=== PATIENT | female | born 1995 | race Caucasian/White ===

== ENCOUNTER 2017-01-07 22:09 | Emergency (ER) | payer MEDICAID, OTHER ==
[2017-01-07 22:10] VITALS: BMI 26.1
[2017-01-07 22:21] VITALS: TEMP 97.8
--- NOTE | 2017-01-07 22:54 | ED PDOC ---
HPI: Abdomen Time Seen by Provider: 01/07/17 22:27 Chief Complaint (Nursing): Female Genitourinary Chief Complaint (Provider): ; pelvic pain History Per: Patient History/Exam Limitations: no limitations Onset/Duration Of Symptoms: Days (1) Current Symptoms Are (Timing): Still Present Location Of Pain/Discomfort: Suprapubic Quality Of Discomfort: Sharp, "Pain" Last Bowel Movement: Today Additional History Per: Patient Additional Complaint(s): 21 y/o female history of PCOS, approx 5 weeks gestation, presents with lower pelvic cramping x 1 day. Denies fever, nausea/vomiting, changes in bowel movements, dysuria, hematuria, vaginal bleeding/discharge. Patient states she had recent beta level and was told it was "low", in the 900's. Last Menstral Period: 12/02/16 : 1 Para: 0 Miscarriage: 0 Past Medical History Reviewed: Historical Data, Nursing Documentation, Vital Signs Vital Signs: Last Vital Signs Temp 97.8 F 01/07/17 22:18 Pulse 84 01/07/17 22:18 Resp 18 01/07/17 22:18 BP 123/77 01/07/17 22:18 Pulse Ox 100 01/07/17 23:54 - Medical History PMH: Anemia, Asthma, Hypothyroidism - Family History Family History: States: Unknown Family Hx - Immunization History Hx Tetanus Toxoid Vaccination: Yes Hx Influenza Vaccination: Yes Hx Pneumococcal Vaccination: Yes - Home Medications Home Medications: Ambulatory Orders Medication Instructions Recorded Amoxicillin [Amoxil 500 mg Cap] 500 mg PO Q8 #30 cap 12/24/14 Ibuprofen 600 mg PO Q8 #30 tab 12/24/14 Norgestimate-Ethinyl Estradiol 1 tab PO DAILY 11/22/15 [Sprintec 28 Day Tablet] Pnv#26/Iron Poly/FA/Dha 1 tab PO DAILY 11/22/15 [Vitafol-One Capsule] Cyclobenzaprine [Cyclobenzaprine 10 mg PO TID #20 tab 04/15/16 HCl] Ibuprofen [Motrin] 600 mg PO Q6 #20 tab 04/15/16 - Allergies Allergies/Adverse Reactions: Allergies Allergy/AdvReac Type Severity Reaction Status Date / Time No Known Allergies Allergy Verified 04/15/16 14:09 Review of Systems ROS Statement: Except As Marked, All Systems Reviewed And Found Negative Genitourinary Female: Positive for: Pelvic Pain Physical Exam - Reviewed Nursing Documentation Reviewed: Yes Vital Signs Reviewed: Yes - Physical Exam Appears: Positive for: Well, Non-toxic, No Acute Distress Head Exam: Positive for: ATRAUMATIC, NORMAL INSPECTION, NORMOCEPHALIC Skin: Positive for: Normal Color Cardiovascular/Chest: Positive for: Regular Rate, Rhythm Respiratory: Positive for: Normal Breath Sounds Gastrointestinal/Abdominal: Positive for: Bowel Sounds, Soft, Tenderness ( diffuse lower discomfort, worse suprapubic) Back: Positive for: Normal Inspection Extremity: Positive for: Normal ROM Neurologic/Psych: Positive for: Alert, Oriented - Laboratory Results Result Diagrams: 01/07/17 22:58 01/07/17 22:58 - ECG O2 Sat by Pulse Oximetry: 100 - Progress ED Course And Treament: labs, urine, OB TV u/s EXAM: US , Transvaginal CLINICAL HISTORY: 21 years old, female; Pain; Other: Pelvic pain; Gestational age or lmp: 12/04/16; ; Additional info: , pelvic pain TECHNIQUE: Real-time transvaginal obstetrical ultrasound of the maternal pelvis and a first trimester with image documentation. Transvaginal imaging was used for better evaluation of the fetus and adnexa. COMPARISON: No relevant prior studies available. FINDINGS: Gestation: Gestational sac. Yolk sac. No pole. Mean sac diameter of 0.51 cm, out of range. Uterus/cervix: Retroverted uterus. 1.1 x 0.8 x 1.0 cm uterine mass. No subchorionic hemorrhage. No cervical dilatation or effacement. Ovaries: RIGHT ovary: Normal. LEFT ovary: Probable corpus luteal cyst. No adnexal masses. Free fluid: No significant free fluid. IMPRESSION: 1. Intrauterine , of uncertain viability. Recommend followup. 2. Probable fibroid. 3. Incidental/non-acute findings are described above. Patient educated on findings, discharged with instructions to follow up Vending Machine [employer]r in 2-3 days. Return to ED for worsening/concerning symptoms. Disposition - Clinical Impression Clinical Impression: Uterine fibroid, Abdominal pain during - Disposition Disposition Time: 00:36 Condition: STABLE Additional Instructions: Follow up with Vending Machine Rep[employer]r in 2-3 days. Return to ED for worsening/concerning symptoms. Instructions: Uterine Fibroids (ED), Abdominal Pain in (ED)
[2017-01-07 23:02] LABS: BASO % 0.3 % (0.0-2.0); EOS # 0.8 K/uL (0.0-0.7); EOS % 6.9 % (0.0-4.0); HEMATOCRIT 39.1 % (34.0-47.0); LYMPH % 26.6 % (20.0-40.0); MEAN CELL VOLUME 85.6 fl (81.0-99.0); MEAN CORPUSCULAR HEMOGLOBIN 27.8 pg (27.0-31.0); MEAN CORPUSCULAR HGB CONC 32.5 g/dL (33.0-37.0); MEAN PLATELET VOLUME 8.5 fl (7.2-11.7); MONO # 0.8 K/uL (0.0-0.8); MONO % 7.4 % (0.0-10.0); NEUT # 6.6 K/uL (1.8-7.0); NEUT % 58.8 % (50.0-75.0); RED CELL DISTRIBUTION WIDTH 13.1 % (11.5-14.5); WHITE BLOOD COUNT 11.2 K/uL (4.8-10.8)
[2017-01-07 23:09] LABS: RBC URINE 5 /hpf (0-3); URINE BACTERIA RARE (<OCC); URINE BILIRUBIN NEGATIVE (NEGATIVE); URINE BLOOD NEGATIVE (NEGATIVE); URINE COLOR YELLOW (YELLOW); URINE GLUCOSE (UA) NEG (Normal); URINE KETONE NEGATIVE (NEGATIVE); URINE LEUKOCYTE ESTERASE NEG Leu/uL (Negative); URINE PROTEIN 30 mg/dL (NEGATIVE); URINE UROBILINOGEN 0.2-1.0 mg/dL (0.2-1.0); WBC URINE 1 /hpf (0-5)
[2017-01-07 23:11] LABS: ALB/GLOB RATIO 1.2 (1.0-2.1); ALKALINE PHOSPHATASE 48 U/L (38-126); ALT/SGPT 50 U/L (9-52); AST/SGOT 34 U/L (14-36); BILIRUBIN,TOTAL 0.3 mg/dl (0.2-1.3); BLOOD UREA NITROGEN 9 mg/dl (7-17); CALCIUM 8.9 mg/dL (8.4-10.2); CARBON DIOXIDE 24 mmol/L (22-30); CHLORIDE 104 mmol/L (98-107); GFR AFRICAN-AMERICAN > 60; GLUCOSE,RANDOM 92 mg/dL (65-105); POTASSIUM 3.5 MMOL/L (3.6-5.0); SODIUM 140 mmol/l (132-148); TOTAL PROTEIN 7.1 G/DL (6.3-8.2)
--- NOTE | 2017-01-07 23:41 | US ---
EXAM: US , Transvaginal CLINICAL HISTORY: 21 years old, female; Pain; Other: Pelvic pain; Gestational age or lmp: 12/04/16; ; Additional info: , pelvic pain TECHNIQUE: Real-time transvaginal obstetrical ultrasound of the maternal pelvis and a first trimester with image documentation. Transvaginal imaging was used for better evaluation of the fetus and adnexa. COMPARISON: No relevant prior studies available. FINDINGS: Gestation: Gestational sac. Yolk sac. No pole. Mean sac diameter of 0.51 cm, out of range. Uterus/cervix: Retroverted uterus. 1.1 x 0.8 x 1.0 cm uterine mass. No subchorionic hemorrhage. No cervical dilatation or effacement. Ovaries: RIGHT ovary: Normal. LEFT ovary: Probable corpus luteal cyst. No adnexal masses. Free fluid: No significant free fluid. IMPRESSION: 1. Intrauterine , of uncertain viability. Recommend followup. 2. Probable fibroid. 3. Incidental/non-acute findings are described above.
[2017-01-08 00:44] VITALS: BP 122/65; PULSE 81; RESP 16; O2SAT 98
== END 2017-01-08 00:38 | disposition home or self-care (01) ==
LOC: H.ER 22:09
DX: O26.891 Other specified pregnancy related conditions, first trimester (principal); R10.2 Pelvic and perineal pain; J45.909 Unspecified asthma, uncomplicated; D25.9 Leiomyoma of uterus, unspecified

== ENCOUNTER 2017-03-14 19:27 | Emergency (ER) | payer OTHER, MEDICAID ==
[2017-03-14 19:27] VITALS: BMI 26.1
[2017-03-14 19:45] VITALS: BP 116/59; PULSE 86; RESP 16; TEMP 97.8; O2SAT 99
[2017-03-14] MEDS ORDERED: Albuterol 0.083% Inhal Sol (2.5 mg/3 mL) UD INH ONE (20:13)
[2017-03-14] MEDS ORDERED: methylPREDNISolone 125 MG in Sodium Chloride 0.9% 50 ML IVPB ONE (20:14)
--- NOTE | 2017-03-14 20:17 | ED PDOC ---
HPI: SOB/CHF/COPD Time Seen by Provider: 03/14/17 19:56 Chief Complaint (Nursing): Shortness Of Breath Chief Complaint (Provider): SOB History Per: Patient History/Exam Limitations: no limitations Onset/Duration Of Symptoms: Days (4) Current Symptoms Are (Timing): Still Present Initiating Event: Upper Respiratory Illness Current Respiratory Medications: None Associated Symptoms: Chills, Productive Cough Additional Complaint(s): 21 y/o F with PMhx of hypothyroid and pneumonia 3 months ago, at 14+ weeks IUP presents c/o SOB, productive cough and occasionally episode of chill for the past 4 days. Patient states 4 days ago she had runny nose and allergy like symptoms that resolved. She is concerns because episode of recent Pneumonia. She thinks she had fever yesterday because she felt very hot and chills but didnt check her temp. Denies CP, palpitations or dizziness. Denies any other PMHx. Denies vaginal bleeding, dysuria, LOF or vaginal discharge. Past Medical History Reviewed: Nursing Documentation, Vital Signs Vital Signs: Last Vital Signs Temp 97.8 F 03/14/17 19:40 Pulse 86 03/14/17 19:40 Resp 16 03/14/17 20:26 BP 116/59 L 03/14/17 19:40 Pulse Ox 99 03/14/17 20:49 - Medical History PMH: Anemia, Asthma, Hypothyroidism - Family History Family History: States: Unknown Family Hx - Social History Current smoker - smoking cessation education provided: No Alcohol: None Drugs: Denies - Immunization History Hx Tetanus Toxoid Vaccination: Yes Hx Influenza Vaccination: Yes Hx Pneumococcal Vaccination: Yes - Home Medications Home Medications: Ambulatory Orders Medication Instructions Recorded Amoxicillin [Amoxil 500 mg Cap] 500 mg PO Q8 #30 cap 12/24/14 Ibuprofen 600 mg PO Q8 #30 tab 12/24/14 Norgestimate-Ethinyl Estradiol 1 tab PO DAILY 11/22/15 [Sprintec 28 Day Tablet] Pnv#26/Iron Poly/FA/Dha 1 tab PO DAILY 11/22/15 [Vitafol-One Capsule] Cyclobenzaprine [Cyclobenzaprine 10 mg PO TID #20 tab 04/15/16 HCl] Ibuprofen [Motrin] 600 mg PO Q6 #20 tab 04/15/16 Albuterol HFA [Ventolin HFA 90 1 - 2 puff IH Q6 PRN #1 inhaler 03/14/17 mcg/actuation (8 g)] Azithromycin [Zithromax] 250 mg PO QAM #1 pkg 03/14/17 predniSONE [predniSONE Tab] 60 mg PO QAM #12 tab 03/14/17 - Allergies Allergies/Adverse Reactions: Allergies Allergy/AdvReac Type Severity Reaction Status Date / Time Sulfa (Sulfonamide Allergy ITCHING Verified 03/14/17 19:45 Antibiotics) Review of Systems ROS Statement: Except As Marked, All Systems Reviewed And Found Negative Constitutional: Positive for: Chills Respiratory: Positive for: Cough, Shortness of Breath, Sputum, Wheezing Physical Exam - Reviewed Nursing Documentation Reviewed: Yes Vital Signs Reviewed: Yes - Physical Exam Appears: Positive for: Non-toxic Head Exam: Positive for: ATRAUMATIC Skin: Positive for: Normal Color, Warm Eye Exam: Positive for: EOMI, PERRL Cardiovascular/Chest: Positive for: Regular Rate, Rhythm. Negative for: Gallop , Murmur Respiratory: Positive for: Wheezing. Negative for: Decreased Breath Sounds, Crackles, Respiratory Distress Gastrointestinal/Abdominal: Positive for: Normal Exam, Soft. Negative for: Tenderness Extremity: Positive for: Normal ROM. Negative for: Tenderness, Pedal Edema Neurologic/Psych: Positive for: Alert, Oriented. Negative for: Motor/Sensory Deficits - Laboratory Results Result Diagrams: 03/14/17 20:44 03/14/17 20:44 - ECG O2 Sat by Pulse Oximetry: 99 - Progress ED Course And Treament: CXR no infiltrates Slight elevation of WBC could be related to Patient improved clinically Will be DC home with Zithromax, Albuterol HFA and Prednisone PO F/U with PMD and OB Medical Decision Making Medical Decision Makin21 y/o F with PMHx of hypothyroid and recent pneumonia 3 months ago presents C/ O SOB Rule out Pneumonia vs bronchitis VS WNL CXR CBC,CMP,Lactate ALbuterol neb 5mg x1 Solumedrol 125mls x1 Disposition - Clinical Impression Clinical Impression: Bronchitis - Disposition Disposition Time: 21:15 Condition: STABLE Prescriptions: Albuterol HFA [Ventolin HFA 90 mcg/actuation (8 g)] 1 - 2 puff IH Q6 PRN #1 inhaler PRN Reason: Shortness Of Breath Azithromycin [Zithromax] 250 mg PO QAM #1 pkg predniSONE [predniSONE Tab] 60 mg PO QAM #12 tab Instructions: Acute Bronchitis (ED) Forms: [facility] (Indonesian)
[2017-03-14] MEDS ORDERED: Albuterol 0.083% Inhal Sol (2.5 mg/3 mL) UD ONE ×2 (20:29→20:34)
[2017-03-14 20:53] LABS: BASO % 0.2 % (0.0-2.0); EOS # 0.7 K/uL (0.0-0.7); EOS % 4.6 % (0.0-4.0); HEMOGLOBIN 11.7 g/dL (12.0-16.0); LYMPH # 3.1 K/uL (1.0-4.3); LYMPH % 21.8 % (20.0-40.0); MEAN CELL VOLUME 84.3 fl (81.0-99.0); MEAN CORPUSCULAR HEMOGLOBIN 28.8 pg (27.0-31.0); MEAN CORPUSCULAR HGB CONC 34.2 g/dL (33.0-37.0); MEAN PLATELET VOLUME 8.2 fl (7.2-11.7); MONO % 6.7 % (0.0-10.0); NEUT # 9.6 K/uL (1.8-7.0); NEUT % 66.7 % (50.0-75.0); RBC 4.07 Mil/uL (3.80-5.20); RED CELL DISTRIBUTION WIDTH 12.9 % (11.5-14.5); WHITE BLOOD COUNT 14.3 K/uL (4.8-10.8)
[2017-03-14 21:02] LABS: ALB/GLOB RATIO 1.1 (1.0-2.1); ALBUMIN 3.6 g/dL (3.5-5.0); ALT/SGPT 35 U/L (9-52); AST/SGOT 28 U/L (14-36); BLOOD UREA NITROGEN 7 mg/dl (7-17); GFR AFRICAN-AMERICAN > 60; GFR NON-AFRICAN AMERICAN > 60
--- NOTE | 2017-03-15 07:30 | RAD ---
HISTORY: SOB, Recent Pneumonia COMPARISON: No prior. FINDINGS: LUNGS: No active pulmonary disease. PLEURA: No significant pleural effusion identified, no pneumothorax apparent. CARDIOVASCULAR: Normal. OSSEOUS STRUCTURES: No significant abnormalities. VISUALIZED UPPER ABDOMEN: Normal. OTHER FINDINGS: None. IMPRESSION: No active disease.
== END 2017-03-14 21:20 | disposition home or self-care (01) ==
LOC: H.ER 19:27
DX: J40 Bronchitis, not specified as acute or chronic (principal)

== ENCOUNTER 2017-05-05 23:18 | Emergency (ER) | payer OTHER, MEDICAID ==
[2017-05-06 00:13] VITALS: BMI 38.4
[2017-05-06 00:14] LABS: RBC URINE 6 /hpf (0-3); URINE BACTERIA RARE (<OCC); URINE BILIRUBIN NEGATIVE (NEGATIVE); URINE BLOOD NEGATIVE (NEGATIVE); URINE COLOR YELLOW (YELLOW); URINE GLUCOSE (UA) NEG (Normal); URINE KETONE TRACE mg/dL (NEGATIVE); URINE LEUKOCYTE ESTERASE NEG Leu/uL (Negative); URINE PROTEIN 30 mg/dL (NEGATIVE); URINE UROBILINOGEN 0.2-1.0 mg/dL (0.2-1.0); WBC URINE 3 /hpf (0-5)
--- NOTE | 2017-05-06 01:05 | OBHP ---
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 She denies nausea vomitin g or diarrhea. Patient states that since she has presented here her pain has now spontaneously resolv ed. Patient receives prenatally care at [facility]. Her OB history is significant for positive Glucola screening test she has not had a 3 hour yet. Dwayne hua OB history spontaneous AB in 2012 Past medical history denies. Past surgical history denies No known drug allergies Medications: vitamins Impression 21.6 weeks with abdominal pain and spontaneous resolution. Plan UA completed and negative Follow-up will be done within 1 week Pelvic rest and activity. Increase water intake minimize intake of suite beverages and sodas. Pelvic Type - PN: Adequate Extremities - PN: Normal Abdomen - PN: Abnormal Lungs - PN: Normal Heart - PN: Normal Neurologic - PN: Normal HEENT - PN: Normal General - PN: Normal FHR - Baseline A Provider: 140 Contraction Comments Provider: no Comments, ACOG Physical Exam: upon presentation: abd- soft; diffuse abd pain to palpation prior to d/c home: abd nt SSE: CL/TH; no blood; physiol d/c EGA AdmitDate IP: 21.6 Vital Signs Provider: Within Normal Limits IP Chief Complaint: Maternal discomfort FHR Category Provider Fetus A: Category I NICHD Decel Fetus A IP Provider: None Dilatation, Provider: 0 Effacement, Provider: 0 Station, Provider: -4 Genitourinary Exam: Normal
[2017-05-06 05:07] VITALS: BP 89/60; PULSE 79; O2SAT 99
== END 2017-05-06 00:40 | disposition home or self-care (01) ==
LOC: H.EROB2 23:18
DX: O47.02 False labor before 37 completed weeks of gestation, second trimester (principal); Z3A.21 21 weeks gestation of pregnancy